=== PATIENT | male | born 1990 | race Caucasian/White ===

== ENCOUNTER 2018-07-08 11:45 | Emergency (ER) | payer SELFPAY ==
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
[2018-07-08 14:10] VITALS: BP 123/90
== END 2018-07-08 14:09 | disposition home or self-care (01) ==
LOC: ED 11:45
DX: M54.2 Cervicalgia (principal); R51 Headache
CPT/HCPCS: 99281